=== PATIENT | male | born 1955 | race Caucasian/White ===

== ENCOUNTER 2017-02-11 07:58 | Outpatient (CLI) | payer OTHER ==
[2017-02-11 08:52] LABS: eGFR (African) > 60; eGFR (Non-African) > 60
== END 2017-02-11 10:00 ==
LOC: LAB 07:58
PROVIDERS: ATTEND Family Medicine
DX: E78.5 Hyperlipidemia, unspecified (principal); M10.9 Gout, unspecified
CPT/HCPCS: 36415; 80053; 80061; 84550

== ENCOUNTER 2018-12-29 08:17 | Outpatient (CLI) | payer OTHER ==
[2018-12-29 09:19] LABS: eGFR (Non-African) > 60
[2018-12-29 09:20] LABS: HDL 44 mg/dL (>40)
== END 2018-12-29 08:22 ==
LOC: LAB 08:17
PROVIDERS: ATTEND Family Medicine
DX: E78.5 Hyperlipidemia, unspecified (principal); M10.9 Gout, unspecified
CPT/HCPCS: 36415; 80053; 80061; 84550